=== PATIENT | female | born 1965 | race Caucasian/White ===

== ENCOUNTER 2016-08-10 09:58 | Emergency (ER) | payer OTHER ==
[~2016-08-10] VITALS: Ht 162.6 cm; Wt 112.2 kg
[~2016-08-10 09:58] MED LIST: ALAVERT10 MG PO; ASPIR-LOW81 MG PO; ASPIRIN81 M2 PO; AZITHROMYCIN250 MG1 PO; CIPRO500 MG PO; CLARITIN10 M3 PO; DITROPAN5 MG PO; FLEXERIL5 MG PO; FLOVENT 44120 INHALA IH; LASIX20 MG PO; LEVAQUIN500 MG PO; LOVASTATIN20 MG PO; LOVASTATIN40 MG PO; LYRICA50 MG PO; MOBIC7.5 MG PO; MOTRIN400 MG PO; NAPROSYN500 MG PO; NAPROXEN250 MG PO; NAPROXEN500 MG PO; OXYCODONE HCL5 MG PO; PEPCID20 MG PO; PERCOCET 5/31 TABLET PO; PREDNISONE1 MG PO; PREDNISONE20 MG PO; PRILOSEC40 MG PO; PRINIVIL5 MG PO; PROAIR HFA8.5 GM IH; PROMETHAZINE HC25 M1 PO; PROVENTIL,2.5 MG/0.5 IH; PROVENTIL,2.5 MG/3 M IH; PROVENTIL,VENTOL2 MG PO; PROVENTIL2.5 MG/3 M IH; TRAMADOL HCL50 MG PO; TYLENOL WITH C1 EACH PO; ULTRAM50 MG PO; VENTOLIN HFA18 GM IH; ZESTRIL2.5 MG PO; ZITHROMAX Z-PA250 MG PO; [UNRECOGNIZED DRUG - REMARK]
[2016-08-10 10:06] VITALS: BP 136/98
[2016-08-10] MEDS ORDERED: MOBIC7.5 MG PO (11:45)
== END 2016-08-10 11:59 | disposition home or self-care (01) ==
LOC: EME 09:58
DX: M25.561 Pain in right knee (principal); Z88.0 Allergy status to penicillin; Z88.8 Allergy status to other drugs, medicaments and biological substances; J30.2 Other seasonal allergic rhinitis; F17.200 Nicotine dependence, unspecified, uncomplicated; I10 Essential (primary) hypertension; E11.9 Type 2 diabetes mellitus without complications; J44.9 Chronic obstructive pulmonary disease, unspecified; E78.5 Hyperlipidemia, unspecified; J45.909 Unspecified asthma, uncomplicated
CPT/HCPCS: 73564; 99281; 99283

== ENCOUNTER 2016-12-01 13:56 | Emergency (ER) | payer OTHER ==
[~2016-12-01] VITALS: Ht 165.1 cm; Wt 113.0 kg
[2016-12-01] MEDS ORDERED: OMEPRAZOLE20 MG PO (14:58)
[2016-12-01] MEDS ORDERED: BACLOFEN10 MG PO (15:47)
[2016-12-01] MEDS ORDERED: NAPROSYN500 MG PO (15:47)
[2016-12-01 15:51] VITALS: BP 118/78
== END 2016-12-01 15:54 | disposition home or self-care (01) ==
LOC: EME 13:56
DX: M25.561 Pain in right knee (principal); M17.11 Unilateral primary osteoarthritis, right knee; G89.29 Other chronic pain; F17.200 Nicotine dependence, unspecified, uncomplicated; Z71.6 Tobacco abuse counseling; Z88.0 Allergy status to penicillin
CPT/HCPCS: 73564

== ENCOUNTER 2017-12-17 11:26 | Emergency (ER) | payer OTHER ==
[~2017-12-17] VITALS: Ht 167.6 cm; Wt 116.0 kg
[~2017-12-17 11:26] MED LIST changes: +BACLOFEN10 MG PO; +OMEPRAZOLE20 MG PO
[2017-12-17 11:56] LABS: HEMOGLOBIN 15.4 G/DL (11.9-15.5); MCH 30.7 PG (29.0-34.0); MCHC 33.5 G/DL (30.0-36.0); MCV 91.8 FL (83-99); PLATELET COUNT 252 K/uL (156-360); RBC DIS.WIDTH-CV 12.9 % (11.8-14.6); RBC DIS.WIDTH-SD 43.2 % (39-53); RED BLOOD COUNT 5.01 M/uL (3.80-5.20); WHITE BLOOD COUNT 11.7 K/uL (4.1-10.2)
[2017-12-17 12:04] LABS: CHLORIDE 103 mEq/L (99-109); POTASSIUM 4.6 mEq/L (3.7-5.4); SODIUM 139 mEq/L (136-147)
[2017-12-17 12:07] LABS: GLUCOSE 148 mg/dL (70-99)
[2017-12-17 12:08] LABS: APPEARANCE SL.HAZY ((CLEAR)); BILIRUBIN NEGATIVE; BLOOD MODERATE; COLOR YELLOW ((YELLOW)); GLUCOSE (STRIP) NEGATIVE; KETONES NEGATIVE; LEUKOCYTES TRACE; NITRITE POSITIVE; PROTEIN (STRIP) 30; SPECIFIC GRAVITY 1.021 (1.000-1.030); UROBILINOGEN 0.2 MG/DL (0.2-1.0)
[2017-12-17 12:09] LABS: TOTAL BILIRUBIN 0.4 mg/dL (0.0-1.0)
[2017-12-17 12:10] LABS: ALKALINE PHOSPHATASE 92 IU/L (3-129); CREATININE 0.8 mg/dL (0.6-1.3); GFR ESTIMATE (CALCULATED) > 59 mL/min/
[2017-12-17 12:11] LABS: UREA NITROGEN (BUN) 10 mg/dL (9-23)
[2017-12-17 12:12] LABS: AST (GOT) 21 IU/L (2-34)
[2017-12-17 12:13] LABS: ALT (GPT) 21 IU/L (3-49)
[2017-12-17 12:18] LABS: BACTERIA 2+ /HPF; EPITHELIAL CELLS RARE /HPF; MUCUS NONE SEEN /LPF; UCUL ADDED? YES; WHITE BLOOD CELLS 15-20 /HPF (0-5)
[2017-12-17 12:21] LABS: QUANTITATIVE HCG < 4.0 MIU/ML
[2017-12-17] MEDS ORDERED: BACTRIM,SEPT1 TABLET PO (16:36)
[2017-12-17 16:46] VITALS: BP 116/58
== END 2017-12-17 16:47 | disposition home or self-care (01) ==
LOC: EME 11:26
DX: R10.33 Periumbilical pain (principal); N39.0 Urinary tract infection, site not specified; R19.7 Diarrhea, unspecified; K42.9 Umbilical hernia without obstruction or gangrene; I10 Essential (primary) hypertension; E78.5 Hyperlipidemia, unspecified; Z90.49 Acquired absence of other specified parts of digestive tract; Z88.0 Allergy status to penicillin; F17.200 Nicotine dependence, unspecified, uncomplicated
CPT/HCPCS: 76705; 80053; 81003; 84702; 85027; 87077; 87086; 87186; 99281; 99284